=== PATIENT | male | born 1985 | race Caucasian/White ===

== ENCOUNTER 2019-02-23 18:21 | Emergency (ER) | payer OTHER ==
[2019-02-23 19:05] VITALS: BMI 32.9
--- NOTE | 2019-02-23 19:55 | C.PDOC ---
History Of Present Illness 33 year old male present with LUQ abdominal pain since this morning associated with nausea and diarrhea. Patient states he similar episode one year ago, reports he was seen at [facility] at that time but was told everything was normal and was advised to change his diet. Denies fever or vomiting. Time Seen by Provider: 02/23/19 19:24 Chief Complaint (Nursing): Abdominal Pain History Per: Patient History/Exam Limitations: no limitations Onset/Duration Of Symptoms: Hrs Current Symptoms Are (Timing): Still Present Location Of Pain/Discomfort: LUQ Quality Of Discomfort: Unable To Describe Associated Symptoms: Nausea, Diarrhea. denies: Fever, Vomiting Exacerbating Factors: None Alleviating Factors: None Recent travel outside of the [place]: No Past Medical History Reviewed: Historical Data, Nursing Documentation, Vital Signs Vital Signs: Last Vital Signs Temp 99.1 F 02/23/19 19:05 Pulse 109 H 02/23/19 19:05 Resp 20 02/23/19 19:05 BP 148/95 H 02/23/19 19:05 Pulse Ox 97 02/23/19 19:05 Primary Care Provider: FAMILY PROVIDER,NO Family History: States: Unknown Family Hx - Social History Hx Alcohol Use: No Hx Substance Use: No - Immunization History Hx Tetanus Toxoid Vaccination: No Hx Influenza Vaccination: No Hx Pneumococcal Vaccination: No Review Of Systems Except As Marked, All Systems Reviewed And Found Negative. Constitutional: Negative for: Fever, Chills Gastrointestinal: Positive for: Nausea, Abdominal Pain, Diarrhea. Negative for: Vomiting Physical Exam - Physical Exam Appears: Non-toxic, Other (Mild discomfort) Skin: Normal Color, Warm, No Jaundice Head: Atraumatic, Normacephalic Eye(s): bilateral: Normal Inspection Oral Mucosa: Moist Chest: Symmetrical, No Tenderness Cardiovascular: Rhythm Regular Respiratory: Normal Breath Sounds, No Rales, No Rhonchi, No Wheezing Gastrointestinal/Abdominal: Soft, Tenderness (Mild LUQ), No Guarding, No Rebound Back: No CVA Tenderness Neurological/Psych: Oriented x3, Normal Speech ED Course And Treatment - Laboratory Results Result Diagrams: 02/23/19 20:23 02/23/19 20:23 O2 Sat by Pulse Oximetry: 97 (Room air) Pulse Ox Interpretation: Normal - CT Scan/US CT abd/pel Other Rad Studies (CT/US): Read By Radiologist, Radiology Report Reviewed CT/US Interpretation: EXAM: CT Abdomen and Pelvis with IV contrast. CLINICAL HISTORY: Left lower abd pain. TECHNIQUE: Axial computed tomography images of the abdomen and pelvis with intravenous contrast. 0.00 mGy-cm. CONTRAST: With; OMNI 350 100MLS. COMPARISON: None provided. FINDINGS: LUNG BASES: Mild atelectasis in the lower lung zones. LIVER: Diffuse fatty infiltration of liver is present. GALLBLADDER AND BILE DUCTS: The gallbladder appears within normal limits. No radioopaque gallstones are seen. No biliary ductal dilatation is evident. PANCREAS: Unremarkable. SPLEEN: Unremarkable. ADRENAL GLANDS: Unremarkable. KIDNEYS, URETERS, AND BLADDER: Bladder is decompressed which limits evaluation. Questionable wall thickening versus simply underdistention. Please correlate clinically. STOMACH AND BOWEL: Small hiatal hernia. There is fluid within the rectum compatible with diarrhea. No evidence for bowel obstruction. There is mild wall thickening of a few small bowel loops in the right abdomen. Suggestion of mild fatty stranding near these loops. This is appr eciable of near series 3, images 114-144. This is suggestive of enteritis and could be infectious, inflammatory in nature. Please correlate clinically. APPENDIX: Normal appendix identified in the right lower quadrant. PERITONEUM: No free fluid. No free air. LYMPH NODES: There are several top normal sized lymph nodes in the right lower quadrant and midabdomen mesentery. This is nonspecific but can be seen in mesenteric adenitis. Please correlate clinically. REPRODUCTIVE: Unremarkable as visualized. VASCULATURE: No evidence of abdominal aortic aneurysm. BONES: No aggressive appearing osseous lesion. No acute osseous pathology evident. MISCELLANEOUS: Small fat containing periumbil ical hernia. There are small, bilateral fat containing inguinal hernias. IMPRESSION: 1. Mild atelectasis in the lower lung zones. 2. Diffuse fatty infiltration of liver is present. 3. Small hiatal hernia. 4. Small fat containing periumbilical hernia. 5. There are small, bilateral fat containing inguinal hernias. 6. Bladder is decompressed which limits evaluation. Questionable wall thickening versus simply underdistention. Please correlate clinically. 7. There is fluid within the rectum compatible with diarrhea. 8. Normal appendix identified in the right lower quadrant. 9. There are several top normal sized lymph nodes in the right lower quadrant and midabdomen mesentery. This is nonspecific but can be seen in mesenteric adenitis. Please correlate clinically. 10. There is mild wall thickening of a few small bowel loops in the right abdomen. Suggestion of mild fatty stranding near these loops. This is appreciable of near series 3, images 114-144. This is suggestive of enteritis and could be infectious, inflammatory in nature. Please correlate clinically. 11. Additional, incidental findings as described above. Reevaluation Time: 00:46 Reassessment Condition: Improved Medical Decision Making Medical Decision Making: No prior carepoint record found. Plan: * CT abd/pel * Blood work * UA * Morphine * Pepcid * Zofran Disposition Counseled Patient/Family Regarding: Studies Performed, Diagnosis, Need For Followup, Rx Given - Disposition Referrals: [facility] [Outside] [facility] [Outside] Disposition: HOME/ ROUTINE Disposition Time: 00:47 Condition: IMPROVED Prescriptions: Dicyclomine [Bentyl] 20 mg PO TID PRN #12 tab PRN Reason: Pain Ondansetron ODT [Zofran ODT] 4 mg PO TID PRN #12 odt PRN Reason: Nausea/Vomiting Instructions: Viral Gastroenteritis, Adult (DC) Forms: [facility] (Wallisian), Work Excuse - Clinical Impression Clinical Impression: Enteritis, Abdominal colic - Scribe Statement The provider has reviewed the documentation as recorded by the Scribneel Soto All medical record entries made by the Scribe were at my direction and personally dictated by me. I have reviewed the chart and agree that the record accurately reflects my personal performance of the history, physical exam, medical decision making, and the department course for this patient. I have also personally directed, reviewed, and agree with the discharge instructions and disposition.
[2019-02-23 20:28] LABS: BASO % 0.5 % (0.0-2.0); EOS # 0.1 K/uL (0.0-0.7); EOS % 0.7 % (0.0-4.0); HEMOGLOBIN 16.5 g/dL (12.0-18.0); LYMPH % 10.2 % (20.0-40.0); MEAN PLATELET VOLUME 8.7 fL (7.2-11.7); MONO # 0.9 K/uL (0.0-0.8); MONO % 9.5 % (0.0-10.0); NEUT # 7.8 K/uL (1.8-7.0); NEUT % 79.1 % (50.0-75.0); RBC 5.15 Mil/uL (4.40-5.90); RED CELL DISTRIBUTION WIDTH 13.6 % (11.5-14.5); WHITE BLOOD COUNT 9.9 K/uL (4.8-10.8)
[2019-02-23 20:46] LABS: ALB/GLOB RATIO 1.1 (1.0-2.1); ALBUMIN 4.8 g/dL (3.5-5.0); ALT/SGPT 133 U/L (21-72); AST/SGOT 67 U/L (17-59); BLOOD UREA NITROGEN 10 mg/dL (9-20); CALCIUM 9.8 mg/dl (8.6-10.4); GFR NON-AFRICAN AMERICAN > 60; LIPASE 25 U/L (23-300)
[2019-02-23] MEDS ORDERED: Iohexol 350mg/ml 100 ML ONE (22:56)
[2019-02-23 23:39] LABS: SQUAMOUS EPITHIAL < 1 /hpf (0-5); URINE BILIRUBIN NEGATIVE (NEGATIVE); URINE BLOOD NEGATIVE (NEGATIVE); URINE CLARITY Hazy (Clear); URINE COLOR Yellow (YELLOW); URINE GLUCOSE (UA) NORMAL (Normal); URINE LEUKOCYTE ESTERASE NEG Leu/uL (Negative); URINE PROTEIN NEGATIVE (NEGATIVE); URINE UROBILINOGEN NORMAL mg/dL (0.2-1.0)
[2019-02-24 00:44] VITALS: BP 128/89
[2019-02-24 01:42] VITALS: PULSE 99; RESP 18; TEMP 100; O2SAT 100
--- NOTE | 2019-02-24 09:31 | CT ---
Date of service: 02/23/2019 PROCEDURE: CT Abdomen and Pelvis with intravenous contrast HISTORY: Abdominal pain. COMPARISON: None. TECHNIQUE: Multiple contiguous axial images were performed through the abdomen and pelvis with the use of intravenous contrast. Subsequently, sagittal and coronal reformatted images were obtained. Radiation dose: Total exam DLP = 824.61 mGy-cm. This CT exam was performed using one or more of the following dose reduction techniques: Automated exposure control, adjustment of the mA and/or kV according to patient size, and/or use of iterative reconstruction technique. FINDINGS: LOWER THORAX: Scattered atelectasis at the lung bases. Small hiatal hernia. LIVER: Fatty infiltration of the liver. GALLBLADDER AND BILE DUCTS: Unremarkable. PANCREAS: Unremarkable. No gross lesion or ductal dilatation. SPLEEN: Unremarkable. Splenule. ADRENALS: Unremarkable. No mass. KIDNEYS AND URETERS: Small hypodensity in the upper pole of the right kidney, too small to adequately characterize. VASCULATURE: Unremarkable. No aortic aneurysm. No aortic atherosclerotic calcification or mural plaque present. BOWEL: Underdistention and or mild thickening of the proximal to mid descending colon. Minimal fat stranding and or mild motion artifact at the level of the proximal transverse colon which may represent some mild acute infectious and or inflammatory changes. Clinical correlation. This is best seen on series 3, image 98. Wall thickening of a few small bowel loops seen within the right hemiabdomen best demonstrated on series 3 images 114-144. Adjacent shotty lymph nodes within the right kannan abdomen and mid abdominal mesentery. In addition, there is a suggestion of mild fatty stranding near the bowel loops. This may represent an enteritis possibly secondary to infectious or inflammatory changes. Clinical correlation. Fluid-filled colon suggestive for diarrheal illness. APPENDIX: Unremarkable. Normal appendix. PERITONEUM: Unremarkable. No free fluid. No free air. LYMPH NODES: Unremarkable. No enlarged lymph nodes. BLADDER: Under distended and or thick-walled urinary bladder. Clinical correlation. REPRODUCTIVE: Unremarkable. BONES: Degenerative changes in the spine. OTHER FINDINGS: Small fat containing umbilical hernia. Small fat containing inguinal hernias. IMPRESSION: 1. Wall thickening of a few small bowel loops seen within the right hemiabdomen best demonstrated on series 3 images 114-144. Adjacent shotty lymph nodes within the right kannan abdomen and mid abdominal mesentery. In addition, there is a suggestion of mild fatty stranding near the bowel loops. This may represent an enteritis possibly secondary to infectious or inflammatory changes. Clinical correlation. 2. Underdistention and or mild thickening of the proximal to mid descending colon. Minimal fat stranding and or mild motion artifact at the level of the proximal transverse colon which may represent some mild acute infectious and or inflammatory changes. Clinical correlation. This is best seen on series 3, image 98. 3. Small hypodensity in the upper pole of the right kidney, too small to adequately characterize. 4. Fatty infiltration of the liver. 5. Under distended and or thick-walled urinary bladder which may represent a cystitis. Clinical correlation. 6. Fluid-filled colon suggestive for diarrheal illness. Additional findings as above. These findings were preliminarily reported at 12:42 a.m. on 02/24/[address] Chris Morrow from [facility].
== END 2019-02-24 01:42 | disposition home or self-care (01) ==
LOC: C.ER 18:21
DX: K52.9 Noninfective gastroenteritis and colitis, unspecified (principal); R10.84 Generalized abdominal pain
CPT/HCPCS: 74177; 80053; 81001; 83690; 85025; 96372; 96374; 96375; 99285; J0500; J2270; J2405; Q9967